=== PATIENT | female | born 1960 | race Caucasian/White ===

== ENCOUNTER 2020-12-22 14:00 | Emergency (ER) | payer OTHER ==
--- NOTE | 2020-12-22 14:26 | EDM.PDOC ---
ED HPI GENERAL MEDICAL PROBLEM - General Stated Complaint: RACING HEART Time Seen by Provider: 12/22/20 14:18 Source of Information: Reports: Patient History Limitations: Reports: No Limitations - History of Present Illness INITIAL COMMENTS - FREE TEXT/NARRATIVE: 60-year-old lady with no significant past cardiac history and recent surgery no sooner than 1 year ago came to the emergency department due to palpitations and a sense of a racing heart. She states that she was heading to a friend's house and all of a sudden her heart began to race and she felt nervous and dizzy. She did not have chest pain or diaphoresis. She has not had any recent viral symptoms. She has not had any change in bowel or bladder habits, fever, chills, cough. Has no cardiac history including no diabetes. chest Pain Score (Numeric/FACES): 5 - Related Data Allergies Allergy/AdvReac Type Severity Reaction Status Date / Time No Known Allergies Allergy Verified 09/20/15 18:05 Home Meds: Home Meds Omeprazole 20 mg PO DAILY 10/31/14 [History] Metoprolol Succinate 25 mg PO DAILY 14 Days #14 tab.er.24h 12/22/20 [Rx] Past Medical History Gastrointestinal History: Reports: GERD, Other (See Below) Other Gastrointestinal History: chrons [employer] History: Reports: - Past Surgical History Musculoskeletal Surgical History: Reports: Arthroscopic Procedure, Other (See Below) ED ROS GENERAL - Review of Systems Review Of Systems: See Below Constitutional: Reports: No Symptoms HEENT: Reports: No Symptoms Respiratory: Reports: No Symptoms Cardiovascular: Reports: Lightheadedness, Palpitations Endocrine: Reports: No Symptoms GI/Abdominal: Reports: No Symptoms : Reports: No Symptoms Musculoskeletal: Reports: No Symptoms Skin: Reports: No Symptoms Neurological: Reports: No Symptoms Psychiatric: Reports: No Symptoms Hematologic/Lymphatic: Reports: No Symptoms Immunologic: Reports: No Symptoms ED EXAM, GENERAL - Physical Exam Exam: See Below Exam Limited By: No Limitations General Appearance: Alert, WD/WN, No Apparent Distress Eye Exam: Bilateral Eye: EOMI Head: Atraumatic, Normocephalic Neck: Normal Inspection Respiratory/Chest: No Respiratory Distress, Lungs Clear, Normal Breath Sounds Cardiovascular: Normal Peripheral Pulses, Other (Irregular rhythm likely ectopic beats, no murmurs) Peripheral Pulses: 2+: Radial (L), Radial (R), Dorsalis Pedis (L), Dorsalis Pedis (R) GI/Abdominal: Normal Bowel Sounds, Soft, Non-Tender Back Exam: Normal Inspection. No: CVA Tenderness (R), CVA Tenderness (L) Extremities: Normal Inspection, Pedal Edema, Other (Trace pedal edema bilateral lower extremities) Neurological: Alert, Oriented, CN II-XII Intact, Normal Cognition Psychiatric: Normal Affect, Normal Mood Skin Exam: Warm, Dry, Intact Course - Vital Signs Text/Narrative:: Troponins are negative x2. Lab work is grossly normal. She continued to have symptomatic runs of bigeminy with PVCs. Patient was given 25 mg metoprolol succinate. Patient has a subjective mild improvement. Patient will be discharged home with metoprolol succinate 25 mg daily and will follow up with her primary care physician and cardiology. Last Recorded V/S: Last Vital Signs Temp 36.5 C 12/22/20 14:10 Pulse 70 12/22/20 17:13 Resp 18 12/22/20 14:10 BP 152/84 H 12/22/20 17:13 Pulse Ox 98 12/22/20 14:10 - Orders/Labs/Meds Orders: Active Orders 24 hr Category Date Time Status Sodium Chloride 0.9% [Normal Saline] 500 ml Med 12/22/20 15:15 Active IV ASDIRECTED Medication Orders Sodium Chloride (Normal Saline) 500 mls @ 250 mls/hr IV ASDIRECTED MEENA Last Admin: 12/22/20 15:13 Dose: 250 mls/hr Documented by: HIREN Labs: Laboratory Tests 12/22/20 12/22/20 12/22/20 Range/Units 14:36 14:36 14:36 WBC 8.5 (3.0-10.3) x10-3/uL RBC 4.74 (3.60-5.20) x10(6)uL Hgb 14.1 (11.4-15.5) g/dL Hct 42.3 (34.2-48.2) % MCV 89.4 (76.7-100.5) fL MCH 29.7 (23.9-33.9) pg MCHC 33.2 (31.9-34.8) g/dL RDW 13.0 (12.3-16.5) % Plt Count 227 (151-488) x10(3)uL MPV 7.6 (7.1-12.4) fL Neut % (Auto) 64.0 (30.8-76.2) % Lymph % (Auto) 23.0 (18.4-52.1) % [place] % (Auto) 10.9 (4.4-15.7) % Eos % (Auto) 1.6 (0.6-8.1) % Baso % (Auto) 0.5 (0.2-1.5) % Neut # (Auto) 5.4 (1.5-6.3) x10-3/uL Lymph # (Auto) 1.9 (1.0-4.4) x10-3/uL [place] # (Auto) 0.9 (0.3-1.0) x10-3/uL Eos # (Auto) 0.1 (0.0-0.8) x10-3/uL Baso # (Auto) 0.0 (0.0-0.1) x10-3/uL Sodium 142 (135-145) mmol/L Potassium 3.9 (3.5-5.3) mmol/L Chloride 106 (100-110) mmol/L Carbon Dioxide 26 (21-32) mmol/L BUN 18 (7-18) mg/dL Creatinine 1.0 (0.55-1.02) mg/dL Est Cr Clr Drug Dosing TNP Estimated GFR (MDRD) 56 L (>60) BUN/Creatinine Ratio 18.0 (9-20) Glucose 99 (80-116) mg/dL Calcium 9.4 (8.6-10.2) mg/dL Total Bilirubin 0.5 (0.1-1.3) mg/dL AST 16 (5-25) IU/L ALT 28 (12-36) U/L Alkaline Phosphatase 58 (56-112) IU/L Troponin I 20.4 (4.0-60.3) pg/mL Total Protein 7.7 (6.0-8.0) g/dL Albumin 3.5 (3.2-4.6) g/dL Globulin 4.2 g/dL Albumin/Globulin Ratio 0.8 Urine Color (YELLOW) Urine Appearance (CLEAR) Urine pH (5.0-6.5) Ur Specific [place] (1.010-1.025) Urine Protein (NEGATIVE) mg/dL Urine Glucose (UA) (NORMAL) mg/dL Urine Ketones (NEGATIVE) mg/dL Urine Occult Blood (NEGATIVE) Urine Nitrite (NEGATIVE) Urine Bilirubin (NEGATIVE) Urine Urobilinogen (NEGATIVE) mg/dL Ur Leukocyte Esterase (NEGATIVE) Urine RBC (0-5) Urine WBC (0-5) Ur Squamous Epith Cells (NS,R,O) Urine Bacteria (NS) 12/22/20 12/22/20 Range/Units 15:26 17:30 WBC (3.0-10.3) x10-3/uL RBC (3.60-5.20) x10(6)uL Hgb (11.4-15.5) g/dL Hct (34.2-48.2) % MCV (76.7-100.5) fL MCH (23.9-33.9) pg MCHC (31.9-34.8) g/dL RDW (12.3-16.5) % Plt Count (151-488) x10(3)uL MPV (7.1-12.4) fL Neut % (Auto) (30.8-76.2) % Lymph % (Auto) (18.4-52.1) % [place] % (Auto) (4.4-15.7) % Eos % (Auto) (0.6-8.1) % Baso % (Auto) (0.2-1.5) % Neut # (Auto) (1.5-6.3) x10-3/uL Lymph # (Auto) (1.0-4.4) x10-3/uL [place] # (Auto) (0.3-1.0) x10-3/uL Eos # (Auto) (0.0-0.8) x10-3/uL Baso # (Auto) (0.0-0.1) x10-3/uL Sodium (135-145) mmol/L Potassium (3.5-5.3) mmol/L Chloride (100-110) mmol/L Carbon Dioxide (21-32) mmol/L BUN (7-18) mg/dL Creatinine (0.55-1.02) mg/dL Est Cr Clr Drug Dosing Estimated GFR (MDRD) (>60) BUN/Creatinine Ratio (9-20) Glucose (80-116) mg/dL Calcium (8.6-10.2) mg/dL Total Bilirubin (0.1-1.3) mg/dL AST (5-25) IU/L ALT (12-36) U/L Alkaline Phosphatase (56-112) IU/L Troponin I 23.4 (4.0-60.3) pg/mL Total Protein (6.0-8.0) g/dL Albumin (3.2-4.6) g/dL Globulin g/dL Albumin/Globulin Ratio Urine Color Yellow (YELLOW) Urine Appearance Clear (CLEAR) Urine pH 5.0 (5.0-6.5) Ur Specific [place] 1.015 (1.010-1.025) Urine Protein Negative (NEGATIVE) mg/dL Urine Glucose (UA) Normal (NORMAL) mg/dL Urine Ketones Negative (NEGATIVE) mg/dL Urine Occult Blood Negative (NEGATIVE) Urine Nitrite Negative (NEGATIVE) Urine Bilirubin Negative (NEGATIVE) Urine Urobilinogen Normal (NEGATIVE) mg/dL Ur Leukocyte Esterase Negative (NEGATIVE) Urine RBC Not seen (0-5) Urine WBC 0-5 (0-5) Ur Squamous Epith Cells Few H (NS,R,O) Urine Bacteria Few H (NS) Meds: Medications Generic Name Dose Route Start Last Admin Trade Name Freq PRN Reason Stop Dose Admin Sodium Chloride 500 mls @ 250 mls/hr 12/22/20 15:15 12/22/20 15:13 Normal Saline IV 250 mls/hr ASDIRECTED MEENA Administration Discontinued Medications Generic Name Dose Route Start Last Admin Trade Name Freq PRN Reason Stop Dose Admin Metoprolol Succinate 25 mg 12/22/20 16:48 12/22/20 17:13 Metoprolol Succinate 25 Mg Tab.Er PO 12/22/20 16:49 25 mg ONETIME ONE Administration Metoprolol Succinate 25 mg 12/22/20 16:50 12/22/20 17:16 Metoprolol Succinate 25 Mg Tab.Er PO 12/22/20 16:51 Not Given ONETIME ONE Metoprolol Succinate 25 mg 12/22/20 16:50 12/22/20 17:16 Metoprolol Succinate 25 Mg Tab.Er PO 12/22/20 16:51 Not Given ONETIME ONE Departure - Departure Time of Disposition: 17:58 Disposition: Home, Self-Care 01 Condition: Good Clinical Impression: Ventricular bigeminy Prescriptions: Metoprolol Succinate 25 mg PO DAILY 14 Days #14 tab.er.24h Instructions: Decision Aid - Coronary Artery Disease, Hypertension, Adult, [id number] Referrals: Ann-Marie Marley PA [Primary Care Provider] - Additional Instructions: Continue to take metoprolol succinate 25 mg daily. Please call your primary care provider's office on Thursday to establish an appointment with cardiology, Dr. Bassett. Please make an appointment for the week of 12/31/2020 to evaluate efficacy of metoprolol treatment and for 24-hour Holter monitor. Hopefully you can have this completed prior to seeing Dr. Bassett. Return to the emergency department or call your primary care physician if you have chest pain, shortness of breath, dizziness, weakness. Sepsis Event Note (ED) - Focused Exam Vital Signs: Vital Signs Temp Pulse Pulse Resp BP BP Pulse Ox 12/22/20 17:13 70 152/84 H 12/22/20 14:10 36.5 C 81 18 126/77 98 - My Orders Last 24 Hours: My Active Orders 12/22/20 15:15 Sodium Chloride 0.9% [Normal Saline] 500 ml IV ASDIRECTED - Assessment/Plan Last 24 Hours: My Active Orders 12/22/20 15:15 Sodium Chloride 0.9% [Normal Saline] 500 ml IV ASDIRECTED
[2020-12-22] MEDS ORDERED: Sodium Chloride 0.9% 500 ML IV SCH (15:15)
--- NOTE | 2020-12-22 15:39 | PCM.EKG ---
#1 Interpretation EKG Date: 12/22/20 Time: 14:04 EKG Interpretation Comments: Normal sinus rhythm, rate 75, likely normal axis, frequent ventricular ectopic beats with a bigeminy pattern, no obvious ST-T segment abnormalities
[2020-12-22] MEDS ORDERED: Metoprolol Succinate 25 MG Tab.ER PO ONE ×3 (16:48→16:50)
[2020-12-22 17:13] VITALS: PULSE 70
[2020-12-22 18:32] VITALS: BP 135/70
== END 2020-12-22 18:25 | disposition home or self-care (01) ==
LOC: FB.ED 14:00
DX: R00.8 Other abnormalities of heart beat (principal); K21.9 Gastro-esophageal reflux disease without esophagitis; Z79.899 Other long term (current) drug therapy
CPT/HCPCS: 36415; 80053; 81001; 84484; 85025; 93005; 99285; A9270; J7030

== ENCOUNTER 2023-04-08 12:13 | Emergency (ER) | payer BC ==
[2023-04-08] MEDS ORDERED: fentaNYL 100 MCG/2 ML SDV IVPUSH ONE (13:21)
[2023-04-08] MEDS ORDERED: Naloxone 0.4 MG/ML SDV IVPUSH PRN (13:21)
[2023-04-08] MEDS: Sodium Chloride 0.9% 1,000 ML IV SCH ×2 (13:31→14:47)
[2023-04-08] MEDS ORDERED: Ondansetron 4 MG/2 ML SDV IVPUSH ONE (13:32)
[2023-04-08 13:52] LABS: BLOOD UREA NITROGEN,BUN 17 mg/dL (7-18); BUN/CREATININE RATIO 21.3 (9-20); CALCIUM 9.4 mg/dL (8.6-10.2); CARBON DIOXIDE,CO2 30 mmol/L (21-32); CHLORIDE,CL 95 mmol/L (100-110); CREATININE 0.8 mg/dL (0.55-1.02); ESTIMATED GFR 82 mL/min (>60); GLUCOSE RANDOM 95 mg/dL (80-116); POTASSIUM,K 3.9 mmol/L (3.5-5.3); SODIUM,NA 132 mmol/L (135-145)
[2023-04-08 13:57] LABS: A/G RATIO 0.5; ALANINE AMINOTRANSFERASE,ALT 23 U/L (12-36); ALBUMIN 2.7 g/dL (3.2-4.6); ALKALINE PHOSPHATASE 76 IU/L (56-112); ASPARTATE AMNIOTRANSFERASE,AST 18 IU/L (5-25); BILIRUBIN TOTAL 0.6 mg/dL (0.1-1.3); PROTEIN TOTAL,TP 7.7 g/dL (6.0-8.0)
[2023-04-08 13:59] LABS: BILIRUBIN,URINE NEGATIVE (NEGATIVE); GLUCOSE,URINE NORMAL (NORMAL); KETONES,URINE NEGATIVE (NEGATIVE); LEUKOCYTE ESTERASE,URINE LARGE (NEGATIVE); NITRITE,URINE NEGATIVE (NEGATIVE); OCCULT BLOOD,URINE LARGE (NEGATIVE); PROTEIN,URINE TRACE mg/dL (NEGATIVE); UROBILINOGEN,URINE NORMAL (NEGATIVE)
[2023-04-08 14:09] LABS: BASOPHILS PERCENT AUTO 0.2 % (0.2-1.5); EOSINOPHILS ABSOLUTE AUTO 0.1 x10-3/uL (0.0-0.8); HEMATOCRIT 37.8 % (34.2-48.2); HEMOGLOBIN 12.6 g/dL (11.4-15.5); LYMPHOCYTES ABSOLUTE AUTO 1.1 x10-3/uL (1.0-4.4); LYMPHOCYTES PERCENT AUTO 13.2 % (18.4-52.1); MEAN CORPUSCULAR HGB CONC 33.4 g/dL (31.9-34.8); MEAN CORPUSCULAR VOLUME 89.9 fL (76.7-100.5); MONOCYTES ABSOLUTE AUTO 1.1 x10-3/uL (0.3-1.0); MONOCYTES PERCENT AUTO 13.7 % (4.4-15.7); PLATELET COUNT,PLT 138 x10(3)uL (151-488); RED CELL DISTRIBUTION WIDTH 13.2 % (12.3-16.5); WHITE BLOOD CELL COUNT,WBC 8.4 x10-3/uL (3.0-10.3)
[2023-04-08 14:27] LABS: APPEARANCE,URINE SLIGHTLY CLOUDY (CLEAR); BACTERIA,URINE MANY (NS); COLOR,URINE YELLOW (YELLOW); SQUAMOUS EPITHELIAL CELLS,UR FEW (NS,R,O); WBC,URINE 50-75 (0-5)
[2023-04-08] MEDS ORDERED: Sodium Chloride 0.9% 1,000 ML IV SCH (14:45)
[2023-04-08] MEDS ORDERED: Iopamidol 755 Mg/ML 100 ML Bottle IV SCH (15:30)
[2023-04-08] MEDS ORDERED: cefTRIAXone 1 GM in Sodium Chloride 0.9% 50 ML IV ONE (17:19)
[2023-04-08 19:42] VITALS: BP 132/76; PULSE 70
== END 2023-04-08 18:00 | disposition home or self-care (01) ==
LOC: FB.ED 12:13
DX: R51.9 Headache, unspecified (principal); N12 Tubulo-interstitial nephritis, not specified as acute or chronic; K21.9 Gastro-esophageal reflux disease without esophagitis; Z79.899 Other long term (current) drug therapy
CPT/HCPCS: 36415; 74178; 80053; 81001; 83605; 85025; 86140; 87086; 96361; 96365; 96375; 99284; J0696; J2405; J3010; J3490; J7030; Q9967

== ENCOUNTER 2025-03-22 15:56 | Emergency (ER) | payer MEDICARE, OTHER ==
[2025-03-22 16:25] VITALS: BP 139/64; PULSE 108
[2025-03-22] MEDS ORDERED: Sodium Chloride 0.9% 10 ML Syringe FLUSH PRN (16:31)
[2025-03-22] MEDS: Ketorolac 30 MG/ML SDV IVPUSH STA (16:52)
[2025-03-22] MEDS: Ondansetron 4 MG/2 ML SDV IVPUSH ONE (16:53)
[2025-03-22 16:57] LABS: BASOPHILS ABSOLUTE AUTO 0.0 x10-3/uL (0.0-0.1); BASOPHILS PERCENT AUTO 0.2 % (0.2-1.5); EOSINOPHILS ABSOLUTE AUTO 0.0 x10-3/uL (0.0-0.8); EOSINOPHILS PERCENT AUTO 0.2 % (0.6-8.1); LYMPHOCYTES ABSOLUTE AUTO 0.9 x10-3/uL (1.0-4.4); LYMPHOCYTES PERCENT AUTO 6.9 % (18.4-52.1); MEAN PLATELET VOLUME 7.6 fL (7.1-12.4); MONOCYTES ABSOLUTE AUTO 1.1 x10-3/uL (0.3-1.0); MONOCYTES PERCENT AUTO 8.0 % (4.4-15.7); NEUTROPHILS ABSOLUTE AUTO 11.1 x10-3/uL (1.5-6.3); NEUTROPHILS PERCENT AUTO 84.7 % (30.8-76.2); PLATELET COUNT,PLT 248 x10(3)uL (151-488); RED BLOOD CELL COUNT 4.14 x10(6)uL (3.60-5.20); RED CELL DISTRIBUTION WIDTH 16.4 % (12.3-16.5); WHITE BLOOD CELL COUNT,WBC 13.2 x10-3/uL (3.0-10.3)
[2025-03-22 17:01] LABS: BLOOD UREA NITROGEN,BUN 8 mg/dL (7-18); CARBON DIOXIDE,CO2 27 mmol/L (21-32); CHLORIDE,CL 95 mmol/L (100-110); CREATININE 0.7 mg/dL (0.55-1.02); ESTIMATED GFR 95 mL/min (>60); GLUCOSE RANDOM 128 mg/dL (80-116); POTASSIUM,K 5.1 mmol/L (3.5-5.3); SODIUM,NA 129 mmol/L (135-145)
[2025-03-22 17:07] LABS: A/G RATIO 0.5; ALANINE AMINOTRANSFERASE,ALT 26 U/L (12-36); ASPARTATE AMNIOTRANSFERASE,AST 47 IU/L (5-25); BILIRUBIN TOTAL 1.0 mg/dL (0.1-1.3); PROTEIN TOTAL,TP 8.3 g/dL (6.0-8.0)
[2025-03-22 18:32] LABS: LACTIC ACID 0.8 mmol/L (0.4-2.0)
== END 2025-03-22 19:45 | disposition home or self-care (01) ==
LOC: FB.ED 15:56
DX: G89.18 Other acute postprocedural pain (principal); E86.0 Dehydration; K21.9 Gastro-esophageal reflux disease without esophagitis; M19.90 Unspecified osteoarthritis, unspecified site; Z79.899 Other long term (current) drug therapy
CPT/HCPCS: 36415; 71045; 80053; 83605; 85025; 87428-QW; 96361; 96374; 96375; 99283; 99284-25; J1885; J2270; J2405; J7030